=== PATIENT | male | born 1980 | race Hispanic/Latino ===

== ENCOUNTER 2019-05-12 01:59 | Emergency (ER) | payer SELFPAY ==
[2019-05-12] MEDS ORDERED: Acetaminophen 500 MG TAB ONE (02:18)
== END 2019-05-12 02:40 | disposition home or self-care (01) ==
LOC: ERS 01:59
DX: J06.9 Acute upper respiratory infection, unspecified (principal); F41.9 Anxiety disorder, unspecified; F32.9 Major depressive disorder, single episode, unspecified; F17.200 Nicotine dependence, unspecified, uncomplicated; Z71.6 Tobacco abuse counseling
CPT/HCPCS: 99406